=== PATIENT | female | born 1970 | race Caucasian/White ===

== ENCOUNTER 2016-09-13 11:56 | Day surgery (SDC) | payer BC ==
[2016-09-07 12:58] LABS: BASOPHILS 0.3 %; BASOPHILS ABSOLUTE 0.02 10/3/uL (0.0-0.16); EOSINOPHILS 2.8 %; EOSINOPHILS ABSOLUTE 0.21 10/3/uL (0.0-0.53); HEMATOCRIT 39.3 % (36.0-48.0); HEMOGLOBIN 12.8 g/dL (12.0-16.0); IMMATURE GRANULOCYTES 0.8 %; IMMATURE GRANULOCYTES ABSOLUTE 0.06 10/3/uL (0.0-0.11); LYMPHOCYTES 32.6 %; LYMPHOCYTES ABSOLUTE 2.42 10/3/uL (0.67-4.30); MEAN CORPUS HGB CONC 32.6 g/dL (32.0-36.0); MEAN CORPUSCULAR HEMOGLOB 29.3 pg (26.0-34.0); MEAN PLATELET VOLUME 10.5 fL (9.2-13.0); MONOCYTES 7.8 %; MONOCYTES ABSOLUTE 0.58 10/3/uL (0.21-1.20); NEUTROPHILS 55.7 %; NEUTROPHILS ABSOLUTE 4.14 10/3/uL (2.02-8.40); PLATELET COUNT 218 10/3/uL (150-400); RBC DISTRIBUTION WIDTH 13.3 % (12.0-16.0); RED CELL COUNT 4.37 10/6/uL (4.0-5.6); WHITE BLOOD CELLS 7.4 10/3/uL (4.5-10.5)
[2016-09-07 12:59] LABS: MANUAL DIFF NO %; MEAN CORPUSCULAR VOLUME 89.9 fL (80-100)
[2016-09-07 13:11] LABS: CALCIUM, SERUM 8.9 MG/DL (8.5-10.4); CHLORIDE, SERUM 108 MMOL/L (96-112); CO2 (CARBON DIOXIDE) 25 MMOL/L (24-34); GFR AFRICAN AMERICAN 120 ML/MIN (>=60); GFR NON AFRICAN AMERICAN 104 ML/MIN (>=60); GLUCOSE, SERUM 87 MG/DL (60-99); SODIUM, SERUM 140 MMOL/L (135-148)
[2016-09-07 13:12] LABS: BUN (BLOOD UREA NITROGEN) 12 MG/DL (6-23)
--- NOTE | ~2016-09-13 | OP ---
Record Of Operation [facility] [address] [place]. [address] NAME: RUFUS WATSON : 70 STATUS : [facility]#: [id number] AGE: 46 ADM/REG DATE : 09/13/16 MR#: [id number] REPORT SERV DATE: 09/13/16 DICTATED BY: ONIEL BENITEZ DATE: 09/13/16 REPORT STATUS : Draft TRANSCRIBED BY: MODChata DATE: 09/13/16 DATE OF PROCEDURE: 09/13/2016 PREOPERATIVE DIAGNOSIS: Left thyroid nodule with fine-needle aspiration biopsy suspicious for papillary thyroid carcinoma. POSTOPERATIVE DIAGNOSIS: Left thyroid nodule with fine-needle aspiration biopsy suspicious for papillary thyroid carcinoma. PROCEDURE: Left thyroid lobectomy. SURGEON: Oniel Benitez M.D. [employer]: [place]. ANESTHESIA: General endotracheal. ESTIMATED BLOOD LOSS: 25 mL. INTRAOPERATIVE FLUIDS: 1 liter of crystalloid. INTRAOPERATIVE FINDINGS: Nodule in the posterolateral portion of the left thyroid gland. Frozen section on this nodule could not confirm the presence of papillary thyroid carcinoma. There was a small portion of thyroid tissue adherent to the cricoid cartilage, medial to the recurrent laryngeal nerve. With concern for a papillary thyroid carcinoma which could necessitate total thyroidectomy, excision of this tissue was performed. Frozen section on this tissue, however, demonstrated normal-appearing thyroid tissue. At the end of the operative procedure, the recurrent laryngeal nerve did stimulate well. OPERATIVE PROCEDURE: The patient was identified in the holding room and transported to the operating room. In the operating room, the patient was placed on the operating room table in supine position. Following induction of anesthesia, the patient was intubated without difficulty. The patient was intubated with an endotracheal tube to accommodate the NIM-2 stimulator. A proposed incision was diagrammed in a lower neck skin crease in a horizontal fashion. This area was injected with 1% lidocaine with 1:100,000 epinephrine. The patient was prepped and draped in a sterile fashion. An incision was created through the aforementioned area of the neck. Dissection was carried down to the level of the platysma muscle. The platysma muscle was sharply divided. Superior and inferior subplatysmal flaps were developed. The strap muscles were in the midline and retracted laterally to expose the thyroid gland. The strap muscles were elevated from the left lobe of the thyroid gland and dissection was carried laterally around the thyroid gland with its contained nodule. Working inferiorly, the recurrent laryngeal nerve was identified. In the course of this dissection, the left inferior parathyroid gland was identified and preserved. Superiorly, the superior thyroid pedicle was ligated. The thyroid gland was then rotated medially as the recurrent laryngeal nerve was traced superiorly to its entry point into the larynx. On dissecting the nerve close to its entry point into the larynx, it was evident Record Of Operation [place] [id number] [facility]. [address] NAME: RUFUS WATSON : 70 STATUS : [facility] PAT#: [id number] AGE: 46 ADM/REG DATE : 09/13/16 MR#: [id number] REPORT SERV DATE: 09/13/16 DICTATED BY: ONIEL BENITEZ DATE: 09/13/16 REPORT STATUS : Draft TRANSCRIBED BY: JEAN-PIERRE DATE: 09/13/16 that there was a small band of connective tissue, which was retracting recurrent laryngeal nerve medially along with the gland. This band of tissue was divided releasing the tension on the recurrent laryngeal nerve. At this point, the nerve was stimulated and did not respond well to the NIM-2 stimulator. The remaining attachment of Brewer's ligament and the broad ligament were divided as the thyroid gland was rotated across the midline. The thyroid gland was divided between the thyroid isthmus and right lobe of the thyroid gland. This tissue was sent to surgical pathology for histologic evaluation. At this point, stimulation of the recurrent laryngeal nerve did result in excellent contraction of the laryngeal musculature. There was a small portion of thyroid tissue, which remained adherent to the cricoid cartilage medial to the recurrent laryngeal nerve and medially below its entry point into the larynx. With concern for possible papillary thyroid carcinoma which could necessitate a total thyroidectomy, this tissue was removed and sent for frozen section. Once again, following removal of this tissue, the recurrent laryngeal nerve did not stimulate well with the NIM-2 stimulator. There was a small amount of bloody oozing adjacent to the recurrent laryngeal nerve for which a small piece of Surgicel was placed over the site of bleeding. At this point, no further dissection was performed, awaiting the results of the frozen section. The pathologist did indicate that frozen section on the nodule in the left lobe of the thyroid gland could not confirm the presence of papillary thyroid carcinoma. The frozen section on the tissue adherent to the cricoid cartilage appeared to be normal thyroid tissue with no evidence of carcinoma. No additional thyroid tissue was, therefore, resected. After removing the Surgicel from the site of bleeding adjacent to the recurrent laryngeal nerve, stimulation of the recurrent laryngeal nerve once again resulted in excellent contraction of the laryngeal musculature. There was a very small amount of residual bloody oozing adjacent to the nerve. With concern for injuring the recurrent laryngeal nerve, I opted not to perform bipolar cautery in this area. A small piece of Surgicel was replaced over this area and a #7 round drain was placed to the neck. The strap muscles were reapproximated in the midline with interrupted 3-0 Vicryl suture. Similar suture material was used to approximate the platysma muscle. A running 5-0 Prolene suture was placed in a subcuticular fashion for skin closure. Steri-Strips were applied to the wound. At the end of the operative procedure, the patient was awakened from anesthesia and transported to the recovery room in good condition. The patient tolerated the procedure well. There were no apparent complications. Specimens include left lobe of the thyroid gland with tissue adherent to the cricoid cartilage, adjacent to the left recurrent laryngeal nerve. MARGARITA/JEAN-PIERRE Oniel Benitez M.D. / [id number] CC: Oniel Benitez M.D.
[~2016-09-13 11:56] MED LIST: PRIN5 PO
== END 2016-09-13 19:54 | disposition home or self-care (01) ==
LOC: SDC 11:56
PROVIDERS: Otolaryngology
PROC: 0GTG0ZZ Resection of Left Thyroid Gland Lobe, Open Approach (ICD-10-PCS; principal; 2016-09-13 13:15)
DX: C73 Malignant neoplasm of thyroid gland (principal); I10 Essential (primary) hypertension; M19.90 Unspecified osteoarthritis, unspecified site; K21.9 Gastro-esophageal reflux disease without esophagitis; K08.89 Other specified disorders of teeth and supporting structures; F41.9 Anxiety disorder, unspecified; R06.2 Wheezing; E66.01 Morbid (severe) obesity due to excess calories; Z68.36 Body mass index [BMI] 36.0-36.9, adult; Z88.0 Allergy status to penicillin; Z79.899 Other long term (current) drug therapy; Z98.41 Cataract extraction status, right eye; Z98.42 Cataract extraction status, left eye; Z96.1 Presence of intraocular lens; Z87.440 Personal history of urinary (tract) infections; Z98.890 Other specified postprocedural states
CPT/HCPCS: 71020; 80048; 84703; 85025; 88305; 88307; 88331; 93005; A9270-GY; J0690; J2250; J2405; J2550; J2710; J3010